=== PATIENT | female | born 1950 | race Caucasian/White ===

== ENCOUNTER → 2016-04-06 | Day surgery (SDC) | payer MEDICARE, BC ==
[~2016-04-06] MED LIST: ATOR40TA59 PO; DILT360C PO; HYDROMORPHONE 2 MG/ML VIAL. IV PRN; IV RINGERS,LACTATED 1000ML 1,000 ML IV SCH; LIDOCAINE 1% 1 ML SYRINGE. ID PRN; LIDOCAINE 2% PF Vial for OR 5 ML VIAL. ONE; METF10002 PO; MORPHINE SULFATE 2 MG/ML DISP.SYRIN. IV PRN; ONDANSETRON PF 4 MG/2 ML VIAL. IV PRN; PROCHLORPERAZINE 10 MG/2 ML VIAL. IV PRN; PROPOFOL 40 ML IV ONE; SERT100T PO
[2016-04-06 10:40] VITALS: BP 181/101
--- NOTE | 2016-04-09 14:48 | PATHOLOGY ---
PATHOLOGY REPORT * * * * * * * * FINAL DIAGNOSIS: Colon biopsy, splenic flexure polyp: - Consistent with an inflamed hyperplastic polyp, showing focal surface erosion with mild acute and moderate chronic inflammation. COMMENT: There is no high-grade dysplasia or evidence of malignancy. (JPM:; d/t: 04/09/16) REPORT ELECTRONICALLY SIGNED BY: Kristofer Jenkins M.D. DATE/TIME: 04/09/2016 14:47 * * * * * * * * GROSS PATHOLOGY: Received in formalin labeled "Lyn Strong, splenic flexure polyp," is a 0.6 x 0.5 x 0.3 cm polypoid piece of [place] soft tissue. The margin is inked and the tissue is sectioned perpendicular to the margin and submitted in its entirety in cassette A1. (CAA; 04/06/2016) INITIAL CPT CODE(S): A; 52195 Professional services [place] [facility] [place] [address] Technical services performed by [facility] at [address] [place] [address]. SPECIMEN(S) RECEIVED: A.Splenic flexure polyp CLINICAL HISTORY: History of polyps; polyp PATIENT: LYN STRONG /AGE: 708/13/1950 (Age: 65) PATIENT #: [id number] ALT CASE #: SPECIMEN COLLECTION DATE: 04/06/2016 SPECIMEN RECEIVED DATE: 04/06/2016 [facility] - [address] [place] [address] - PHONE: [phone] * * * END OF REPORT * * *
== END | disposition home or self-care (01) ==
LOC: ENDOS 08:50
PROVIDERS: ATTEND Internal Medicine Gastroenterology
DX: K64.0 First degree hemorrhoids (principal); D12.3 Benign neoplasm of transverse colon; I10 Essential (primary) hypertension; E03.9 Hypothyroidism, unspecified; E11.9 Type 2 diabetes mellitus without complications; M19.90 Unspecified osteoarthritis, unspecified site; Z80.0 Family history of malignant neoplasm of digestive organs; Z83.3 Family history of diabetes mellitus
CPT/HCPCS: 45385; J2704; 88305

== ENCOUNTER → 2017-10-23 | Outpatient (CLI) | payer MEDICARE, BC, OTHER ==
[2016-04-06 10:40] VITALS: BP 181/101
[~2017-10-23] MED LIST changes: -HYDROMORPHONE 2 MG/ML VIAL. IV PRN; -IV RINGERS,LACTATED 1000ML 1,000 ML IV SCH; -LIDOCAINE 1% 1 ML SYRINGE. ID PRN; -LIDOCAINE 2% PF Vial for OR 5 ML VIAL. ONE; -METF10002 PO; +METF10007 PO; -MORPHINE SULFATE 2 MG/ML DISP.SYRIN. IV PRN; -ONDANSETRON PF 4 MG/2 ML VIAL. IV PRN; -PROCHLORPERAZINE 10 MG/2 ML VIAL. IV PRN; -PROPOFOL 40 ML IV ONE
--- NOTE | 2017-10-23 13:39 | KCIC ---
MR of the right foot HISTORY: Right first toe pain and edema, at the head of the first metatarsal, for over one year. TECHNIQUE: Routine multiplanar sequences. FINDINGS: No bone lesion, acute fracture or bone destruction. Primary osteoarthritis, severe, at the first MTP joint. No acute sesamoiditis. Tiny soft tissue cyst medial to the base of the proximal first phalanx, only measures 5 mm. This may represent a small synovial cyst or ganglion. The visualized tendons in the foot are intact. No significant tendon sheath fluid. Lisfranc ligament complex is intact as is tarsometatarsal alignment. No abnormal soft tissue fluid collection. No significant intramuscular edema. IMPRESSION: 1. Primary osteoarthritis, severe at the first MTP joint. 2. No acute findings. Electronically signed by: Oliverio Miller MD (10/23/2017 1:36 PM) [facility]
== END | disposition home or self-care (01) ==
LOC: KCIC MRI 12:06
PROVIDERS: ATTEND Nurse Practitioner Family
DX: M19.071 Primary osteoarthritis, right ankle and foot (principal); I10 Essential (primary) hypertension; E11.9 Type 2 diabetes mellitus without complications; E03.9 Hypothyroidism, unspecified; Z80.0 Family history of malignant neoplasm of digestive organs; Z83.3 Family history of diabetes mellitus
CPT/HCPCS: 73718

== ENCOUNTER 2018-11-17 07:33 | Inpatient (IN) | payer MEDICARE, BC ==
[~2018-11-17] VITALS: Ht 165.1 cm; Wt 62.5 kg
[2018-11-17] VITALS (9 sets, daily range): BP systolic 139–171; BP diastolic 84–89
[~2018-11-17 07:33] MED LIST changes: +BACITRACIN 50,000 UNIT in IV NORMAL SALINE 1000ML BAG 1,000 ML IRR ONE; +BACITRACIN 50,000 UNIT in IV NORMAL SALINE 500ML BAG 500 ML IRR ONE; +CHOL100013 PO; +INSU100C4 SQ; +INSU100I13 SQ; +IRBE75TA2 PO; +LEVO125T PO; +METO-269 PO; +PRAV20TA2 PO; +TOLT4CAP PO
[2018-11-17] MEDS ORDERED: BUPIVACAINE-EPI 0.5%-1:200000 MPF 30 ML VIAL. INJ ONE (08:00)
[2018-11-17] MEDS: IV RINGERS,LACTATED 1000ML 1,000 ML IV SCH ×2 (08:28→12:09)
[2018-11-17] MEDS: INSULIN LISPRO 100 UNIT/ML 3ML VIAL for OP,RR ONLY. SQ PRN ×2 (08:39→12:40)
[2018-11-17] MEDS ORDERED: LIDOCAINE 2% PF 5 ML VIAL. ONE (09:00)
[2018-11-17] MEDS ORDERED: ROCURONIUM 50 MG/5 ML VIAL. ONE (09:00)
[2018-11-17] MEDS ORDERED: ONDANSETRON PF 4 MG/2 ML VIAL. ONE (09:00)
[2018-11-17] MEDS ORDERED: MIDAZOLAM HCL/PF 2 MG/2 ML VIAL. ONE (09:00)
[2018-11-17] MEDS ORDERED: PROPOFOL 20 ML IV ONE (09:00)
[2018-11-17] MEDS ORDERED: fentaNYL PF VIAL 100 MCG/2 ML VIAL ONE ×2 (09:00→12:18)
[2018-11-17] MEDS ORDERED: DEXAMETHASONE SOD PHOS 4 MG/ML VIAL ONE (09:00)
[2018-11-17] MEDS ORDERED: FAMOTIDINE 20 MG/2 ML VIAL ONE (09:00)
[2018-11-17] MEDS ORDERED: NEOSTIGMINE METHYLSULFATE 5 MG/5 ML SYRINGE. ONE (11:45)
[2018-11-17] MEDS ORDERED: GLYCOPYRROLATE 1 MG/5 ML VIAL. ONE (11:45)
[2018-11-17] MEDS ORDERED: SEVOFLURANE > 120 MINUTES. IH ONE (11:48)
[2018-11-17] MEDS ORDERED: ceFAZolin 2GM PREMIX 2 GM/50 ML BAG IV ONE (12:00)
--- NOTE | 2018-11-17 12:19 | PDOC4 ---
Operative Note Operative Note Operative Note: Preoperative Diagnosis: Right inguinal hernia, umbilical hernia Postoperative Diagnosis: Same Procedure: Right inguinal hernia repair, umbilical hernia repair Surgeon: [facility] Biller: Alice DE LA ROSA Anesthesia: Gen. EBL: 10 mL Specimen: None Drains: None Complications: None Indication: The patient is a 68-year-old female who was referred with both a right inguinal hernia and umbilical hernia. She is interested in operative repair. The details and risks of surgery were discussed. The risks include bleeding, infection, recurrence, pain, potential need for additional surgery or procedure. She understands and would like to proceed. Description: The patient was taken to the operating room and placed supine on the operating table. Gen. anesthesia was performed. The abdomen and right groin was shaved and prepped with ChloraPrep and draped in a standard surgical manner. An incision was made in the right groin with a scalpel. Cautery dissection was carried down to the external oblique. The external oblique was opened down to the external ring. There was a direct hernia defect readily identified with some protuberant fatty tissue. The round ligament was doubly ligated and divided. The contents of the hernia were reduced and the defect filled with a large Phasix mesh plug. The plug was sutured around its periphery with 2-0 Vicryl. The entire inguinal floor was then reinforced with a flat Prolene mesh. Inferiorly the mesh was sutured to the shelving edge of the inguinal ligament while superiorly it was sutured to the internal oblique muscle and aponeurosis. The external oblique aponeurosis was closed over the mesh with 2-0 Vicryl. Subcutaneous tissues approximated with 3-0 Vicryl. The skin was closed with 4-0 Monocryl. An infraumbilical incision was made with a scalpel. Cautery dissection was carried down to the fascia. The umbilical tissue was elevated off the fascia exposing a small defect. A preperitoneal plane was developed circumferentially in which a small Ventral ST mesh patch was placed. The mesh was sutured at the 12, 3, 6, 9:00 positions using 0 Prolene placed in a horizontal mattress fashion. The fascial edges were closed over the mesh with 0 Prolene. The umbilicus was sutured back to the fascia with 0 Vicryl. The subcutaneous tissue was closed with interrupted 3-0 Vicryl and skin approximated with 4-0 Monocryl. Both incision sites were infiltrated with half percent Marcaine with epinephrine. Steri-Strips and sterile dressings were applied. The patient tolerated the procedure well and was sent to the recovery room in stable condition. At the end of the case all counts were correct. DAVID TOBAR MD Nov 17, 2018 12:19
[2018-11-17] MEDS ORDERED: IV NORMAL SALINE 1000ML BAG 1,000 ML IV SCH (12:20)
[2018-11-17] MEDS ORDERED: IV RINGERS,LACTATED 1000ML 1,000 ML IV SCH (12:20)
[2018-11-17] MEDS ORDERED: LIDOCAINE 1% PF 2 ML VIAL. ID PRN (12:30)
[2018-11-17] MEDS ORDERED: 0.9 % SODIUM CHLORIDE 10 ML DISP.SYRIN. IV PRN (12:30)
[2018-11-17] MEDS ORDERED: MORPHINE SULFATE 2 MG/ML VIAL. IV PRN (12:30)
[2018-11-17] MEDS ORDERED: HYDROmorphone 2 MG/ML VIAL IV PRN (12:30)
[2018-11-17] MEDS ORDERED: NALOXONE 0.4 MG/ML VIAL. IV PRN (12:30)
[2018-11-17] MEDS ORDERED: ONDANSETRON PF 4 MG/2 ML VIAL. IV PRN ×2 (12:30)
[2018-11-17] MEDS ORDERED: PROCHLORPERAZINE 10 MG/2 ML VIAL. IV PRN (12:30)
[2018-11-17] MEDS ORDERED: KETOROLAC 30 MG/ML VIAL. ONE (12:41)
[2018-11-17] MEDS: fentaNYL PF VIAL 100 MCG/2 ML VIAL IVP PRN ×2 (12:43→13:04)
[2018-11-17] MEDS ORDERED: fentaNYL PF VIAL 100 MCG/2 ML VIAL IVP PRN (12:45)
[2018-11-17] MEDS ORDERED: KETOROLAC 15 MG/ML VIAL. IV ONE (13:00)
[2018-11-17] MEDS: IV 1/2 NORMAL SALINE 1,000 ML IV SCH (15:03)
[2018-11-17] MEDS: HYDROmorphone 2 MG/ML VIAL IV PRN ×3 (15:14→19:51)
[2018-11-17] MEDS: metFORMIN 500 MG TABLET PO SCH (17:51)
[2018-11-17] MEDS: INSULIN LISPRO 300 UNITS/3 ML VIAL. SQ SCH (17:58)
[2018-11-17] MEDS ORDERED: INSULIN GLARGINE SYRINGE. SQ SCH (21:00)
[2018-11-17] MEDS ORDERED: ATORVASTATIN CALCIUM 10 MG TABLET. PO SCH (21:00)
[2018-11-17] MEDS: OXYBUTYNIN CHLORIDE 5 MG TABLET PO SCH (21:16)
[2018-11-17] MEDS: HYDROcodone/APAP 5/325MG 1 TAB TABLET PO PRN (22:09)
[2018-11-18] MEDS: HYDROmorphone 2 MG/ML VIAL IV PRN (02:14)
[2018-11-18 03:00] VITALS: BP 160/82
[2018-11-18] MEDS: IV 1/2 NORMAL SALINE 1,000 ML IV SCH (03:21)
[2018-11-18] MEDS ORDERED: LEVOTHYROXINE 125 MCG TABLET PO SCH (06:00)
[2018-11-18 07:00] VITALS: BP 168/89
[2018-11-18] MEDS: INSULIN LISPRO 300 UNITS/3 ML VIAL. SQ SCH (08:00)
[2018-11-18 08:52] VITALS: BP 168/85
[2018-11-18] MEDS: metFORMIN 500 MG TABLET PO SCH (08:53)
[2018-11-18] MEDS: OXYBUTYNIN CHLORIDE 5 MG TABLET PO SCH (08:55)
[2018-11-18 08:57] VITALS: BP 168/85
[2018-11-18] MEDS ORDERED: CHOLECALCIFEROL (VITAMIN D3) 1,000 UNIT TABLET PO SCH (09:00)
[2018-11-18] MEDS ORDERED: LOSARTAN POTASSIUM 25 MG TABLET. PO SCH (09:00)
[2018-11-18] MEDS ORDERED: METOPROLOL SUCC 24HR ER 50 MG TAB.ER.24H. PO SCH (09:00)
[2018-11-18] MEDS ORDERED: SERTRALINE 50 MG TABLET. PO SCH (09:00)
--- NOTE | 2018-11-18 10:39 | PDOC ---
SURGICAL PROGRESS NOTE Subjective feeling pretty well no n/v ambulating urinating does have migraine--that will raise her BP Vital Signs Vital Signs Date Time Temp Pulse Resp B/P (MAP) Pulse Ox O2 Delivery O2 Flow Rate FiO2 11/18/18 08:57 100 168/85 11/18/18 07:00 98.8 20 94 Room Air 98.8 11/17/18 16:15 2.0 I&O Intake and Output 11/18/18 06:59 Intake Total 3100 ml Output Total 405 ml Balance 2695 ml Intake Oral 1100 ml IV Total 2000 ml Output Urine Total 400 ml Estimated Blood Loss 5 ml # Voids 3 General: Alert, Oriented X3, Cooperative, No acute distress Abdomen: Soft, Other (dressings to umbo and RIH repair dry and intact) Labs Laboratory Tests Test 11/17/18 08:19 11/17/18 12:36 11/17/18 16:32 11/17/18 20:45 Glucose (Fingerstick) 143 mg/dL (70-99) 162 mg/dL (70-99) 272 mg/dL (70-99) 291 mg/dL (70-99) Test 11/18/18 07:44 Glucose (Fingerstick) 130 mg/dL (70-99) Laboratory Tests Test 11/17/18 12:36 11/17/18 16:32 11/17/18 20:45 11/18/18 07:44 Glucose (Fingerstick) 162 mg/dL (70-99) 272 mg/dL (70-99) 291 mg/dL (70-99) 130 mg/dL (70-99) Assessment/Plan s/p RIH, umbo repair stable plan dc home JESSIE RANDHAWA APRN Nov 18, 2018 10:39
[2018-11-18] MEDS ORDERED: HYDR-2761 PO (10:41)
--- NOTE | 2018-11-18 10:43 | DISCH ---
DISCHARGE INSTRUCTIONS Condition on Discharge Condition on Discharge: Stable Activity After Discharge Activity Instructions for Disc: Activity as tolerated Other activity instructions: ok to shower and remove dressings 11/19 Lifting Instructions after Dis: No heavy lifting, No pulling or pushing Driving Instructions after Dis: Do not drive Diet after Discharge Diet after Discharge: Regular, Diabetic No Calorie Level Wound Incision Care Wound/Incision Care: Ice to area for comfort, May get incision wet, No wound care needed Contacting the after DC Call your doctor for: Concerns you may have Follow-Up Follow up with: Dr Mercer 2 weeks, call to schedule [phone] JESSIE RANDHAWA CAR WIPER Nov 18, 2018 10:43
--- NOTE | 2018-11-18 10:54 | NUR ---
Discharge Note: ORI MORENO Discharge instructions and discharge home medications reviewed with Patient and a copy given. All questions have been answered and understanding verbalized. The following instructions and handouts were given: d/c instructions, lortab script Discontinued lines and drains: Peripheral IV intact. Patient discharged to Home or Self Care with Family Member via Wheelchair
[2018-11-18] MEDS: HYDROcodone/APAP 5/325MG 1 TAB TABLET PO PRN (11:00)
== END 2018-11-18 11:34 | disposition home or self-care (01) | DRG 355 ==
LOC: SURG 07:33 → 4 NORTH 12:20 → OBSVTOIN 15:37
PROVIDERS: ADMIT Surgery; ATTEND Surgery
PROC: 0WUF0JZ Supplement Abdominal Wall with Synthetic Substitute, Open Approach (ICD-10-PCS; principal; 2018-11-17 09:30)
DX: K40.90 Unilateral inguinal hernia, without obstruction or gangrene, not specified as recurrent (principal); K42.9 Umbilical hernia without obstruction or gangrene; G43.909 Migraine, unspecified, not intractable, without status migrainosus; Z79.899 Other long term (current) drug therapy; Z88.8 Allergy status to other drugs, medicaments and biological substances
CPT/HCPCS: 82962; A7015; C1781; G0378; G0379; J0696; J1100; J1170; J1815; J1885; J2001; J2250; J2405; J2704; J2710; J3010; J3490; J7030; J7040; J7120; 97530

== ENCOUNTER → 2019-04-21 | Outpatient (CLI) | payer MEDICARE, BC ==
[~2019-04-21] MED LIST changes: -BACITRACIN 50,000 UNIT in IV NORMAL SALINE 1000ML BAG 1,000 ML IRR ONE; -BACITRACIN 50,000 UNIT in IV NORMAL SALINE 500ML BAG 500 ML IRR ONE; +HYDR-2761 PO; +IOHEXOL 240 MG/ML 50ML VIAL. ONE; +methylPREDNISolone ACETATE 40 MG/ML VIAL. ONE; +methylPREDNISolone ACETATE 80 MG/ML VIAL. ONE
--- NOTE | 2019-04-21 23:31 | PAIN ---
DATE OF SERVICE: 04/21/2019 INITIAL CONSULTATION FOR PAIN CLINIC CHIEF COMPLAINT: Low back and right lower extremity pain. HISTORY OF PRESENT ILLNESS: This is a 68-year-old female who presents with history of pain in the low back, right lower extremity for about a year, worse over the past few months. The patient has noticed increased pain with walking, standing, changing positions. It has been awaking her from sleep over the past few months as well about twice a night. The patient reports it does not affect her bowel or bladder control, but does affect her ability to walk fairly significantly over the past few months. The patient reports her disability rating from 0-10, 10 being the worst, is a 5 with family home responsibilities, 6 with recreation and social activity, occupational activity and self-care, 0 with life support activities. The patient reports it is worse with walking, standing, changing positions, also with sitting for prolonged periods on her right side. She has to lean on her left side to sit as well. The patient reports no loss of motor function, but the pain is described as intermittent in intensity across low back into the right lower extremity, anterior thigh and posterior gluteus and into the groin on the right side as well as the medial thigh and medial lower leg to the mid thigh anteriorly. The patient did have MRI scan of the lumbar spine showing multilevel relatively mild degenerative changes at L2-L3, L3-L4, L4-L5 with some posterior disk bulging at these levels with moderately narrowed lateral recess at L3-L4, lateral recess minimally effaces at L2-L3 and [id number] bilateral neural foramina at L4-L5. The patient reports no loss of motor function, but significant fatigability of the right lower extremity with ambulation. PAST MEDICAL HISTORY: Significant for diabetes insulin-dependent, hearing loss, hypothyroidism, hypertension, cigarette smoking, heart valvular irregularity, arthritis. PREVIOUS SURGERY: Includes hernia repair on the right side, cholecystectomy, tubal ligation and hysterectomy. CURRENT MEDICATIONS: Metformin, atorvastatin, Zoloft, Cardizem, vitamin D, NovoLog, Lantus, Detrol, Toprol, and Synthroid, also Avapro and pravastatin. FAMILY HISTORY: Significant for different types of cancer. SOCIAL HISTORY: The patient does not drink alcohol, does smoke a pack of cigarette per day and has for 9 years. Does not use any illegal, illicit or recreational drugs. She is currently retired, lives locally in [place], [place] with her and is currently retired. REVIEW OF SYSTEMS: The patient's review of systems is positive for those items mentioned in history of present illness. All systems reviewed and otherwise negative. It is complete, full and well documented on the patient's chart. PHYSICAL EXAMINATION: VITAL SIGNS: The patient's blood pressure is 150/112, pulse 98, respirations 18, temperature 97.9 degrees Fahrenheit, height is 5 feet 5 inches, weight is 140 pounds. GENERAL: The patient is awake, alert, oriented, appropriate, very pleasant demeanor. HEENT: Shows normocephalic, atraumatic. Extraocular movements are intact and symmetrical. Oral cavity shows mucous membranes moist and pink. Dentition is intact. NECK: Shows anterior throat supple without palpable lymphadenopathy noted. Swallow reflex symmetrical. CHEST: Shows normal on inspection. Breath sounds are clear bilaterally. HEART: Shows S1, S2 clear. No murmurs auscultated. ABDOMEN: Soft, nontender, nondistended. No palpable organomegaly is noted. No rebound or guarding demonstrated. BACK: Shows spine grossly in the midline. Normal appearing cervical lordotic curvature, thoracic kyphotic curvature and lumbar lordotic curvature. Lumbar paraspinous muscle shows symmetrical on inspection, on palpation shows some moderate tenderness diffusely, but only in the low lumbar distribution, slightly more on the right than the left, but without atrophy or hypertrophy without radiation. The patient has good rotational motion of lumbar spine, both laterally, right and left, greater than 10 degrees as well as extension greater than 10 degrees, forward flexion 45 degrees without significant increase in pain or discomfort or inability to rotate. The patient shows no tenderness over the spinous processes, sacrum or sacroiliac regions. EXTREMITIES: The patient's lower extremities show deep tendon reflexes at 2+ in the patellar, 1+ tendo-calcaneus tendons. Motor exam is strong with 5/5 dorsiflexion, extension, quadriceps and hamstring flexion symmetrical. Straight leg raise noted to be negative for reproduction of radicular symptoms both on the right and left lower extremities. Gaenslen's maneuvers are negative bilaterally. She has a mild Gil's maneuver on the right side, which is mildly tender with external rotation on the right only of the hip joint with flexion and external rotation, but without radiation into the groin. The patient is able to stand, stand on her toes without significant difficulty or loss of balance, walks with a normal-appearing gait, not using any assistive devices to ambulate such as canes or walkers. SKIN: Shows warm and dry, good turgor. No edema. No sores, rashes or bruising throughout. IMPRESSION: 1. This is a 68-year-old female with approximate 1-year history of increasing pain in the low back, right lower extremity with radicular pattern. 2. MRI scan of lumbar spine as noted. 3. Diabetes. 4. Hypertension. 5. Arthritis. PLAN: Options were discussed with the patient and the patient's spouse who accompanied her to visit today including conservative medical managements, physical therapies and interventional techniques. She would like to pursue interventional techniques. We discussed a lumbar epidural steroid injection using description as well as anatomical models to describe the procedure. Risks were then discussed including, but not limited to bleeding, infection, possibility of epidural hematoma, subsequent neurological compromise, dural puncture, headaches, spinal cord and/or nerve damage, side effects of steroid medication and poor results regarding pain control. The patient understands and wished to proceed. The patient will return to clinic in approximately 2 weeks for followup. She was counseled on return appointment, activity level and side effects to be aware of. DIAGNOSIS: Lumbar radiculopathy with lumbar degenerative disk disease. PROCEDURE: Lumbar epidural steroid injection, translaminar approach at L3-L4 level using C-arm fluoroscopic guidance under sterile prep and drape using local anesthetic. MEDICATION INJECTED: A total of 120 mg Depo-Medrol plus 10 mL of preservative-free normal saline and 2 mL of contrast. CONDITION AT DISCHARGE: Stable. The patient tolerated the procedure well, had no complications. LAURITA ROSA MD DR: MARTY/williams JOB#: [id number] / [id number]
== END ==
LOC: PNCL 10:48
PROVIDERS: ATTEND Anesthesiology
DX: M51.16 Intervertebral disc disorders with radiculopathy, lumbar region (principal); E11.9 Type 2 diabetes mellitus without complications; E03.9 Hypothyroidism, unspecified; I10 Essential (primary) hypertension; F17.210 Nicotine dependence, cigarettes, uncomplicated; Z87.39 Personal history of other diseases of the musculoskeletal system and connective tissue; Z90.49 Acquired absence of other specified parts of digestive tract; Z90.710 Acquired absence of both cervix and uterus; Z98.51 Tubal ligation status; Z79.84 Long term (current) use of oral hypoglycemic drugs
CPT/HCPCS: 62323; J1030; J1040; Q9966

== ENCOUNTER → 2019-10-14 | Outpatient (CLI) | payer MEDICARE, BC, OTHER ==
[~2019-10-14] MED LIST changes: +IOHEXOL 180 MG/ML 10 ML VIAL. ONE; -IOHEXOL 240 MG/ML 50ML VIAL. ONE
--- NOTE | 2019-10-14 13:23 | PDOC ---
Progress Note - Pain Clinic Date of Service: DOS: DATE: 10/14/19 TIME: 13:19 Diagnosis: Dx: Lumbar radiculopathy lumbar degenerative disc disease History or Present Illness: HPI: 69-year-old female returns follow-up status post lumbar epidurals injection x1 last seen April 21, 2019 patient reports she did very well with about 100% improvement for 4 months after the injection. Patient reports that the pain is returning after she was lifting a couple cases of heavy bottled water now reports the pain is a 10 on scale 10 is worst 8 on average and 8 its least is 8 today patient which is becoming more constant low back rating to right lower extremity posterior gluteus posterior lateral thigh lateral anterior thigh anterior medial thigh medial and posterior calf patient reports is burning and stinging aching dull sharp shooting as well. Patient reports no new motor or sensory deficits no new bowel or bladder incontinence initially she was doing much better with doing work activities household activities sleeping much better still wakes her from sleep occasionally over the last 2 weeks about every 7 hours. Physical Exam: VS: Blood pressure is 154/92 pulse 78 respirations 18 temperature 90.1 F height is 5 feet 5 inches weight is 133 pounds PE: PHYSICAL EXAMINATION: GENERAL: The patient is awake, alert, oriented, appropriate, very pleasant demeanor HEENT: Shows normocephalic, atraumatic. Extraocular movements are intact and symmetrical. Oral cavity: Mucous membranes moist and pink. NECK: Shows anterior throat supple without palpable lymphadenopathy noted. Swallow reflex symmetrical. CHEST: Shows normal on inspection. Breath sounds are clear bilaterally, no rales rhonchi or wheezes auscultated. HEART: Shows S1, S2 clear. No murmurs auscultated. ABDOMEN: Soft, nontender, nondistended. No palpable organomegaly is noted. No rebound or guarding demonstrated. BACK: Shows spine grossly in the midline. Normal-appearing cervical lordotic curvature. There is slightly increased thoracic kyphosis, some minor flattening of the lumbar lordotic curvature. Lumbar paraspinous muscles show symmetrical on inspection, on palpation shows some moderate tenderness diffusely throughout the upper, middle and lower distribution of the paraspinous muscles bilaterally, but without specific trigger points, without radiation of pain. The patient has good rotational motion of the lumbar spine, both laterally as well as extension and flexion without significant difficulty. No tenderness over the spinous processes, sacrum or sacroiliac regions. EXTREMITIES: Lower extremities show deep tendon reflexes 2+ in the patellar and tendo calcaneus tendons. Motor exam is 5 on a scale of 5 with right dorsiflexion, extension, quadriceps and hamstring flexion and 5/5 on the left. Peripheral pulses are 1+ posterior tibial. No peripheral edema is noted bilaterally. Lower extremities are warm and dry to touch, equal in color and appearance. SKIN: Shows warm and dry, good turgor. No edema. No sores, rashes or bruising throughout. Procedure: Procedure: Options discussed with the patient patient's old chart was reviewed as her current medication regimen updated current review of systems updated today as well. We will proceed with a lumbar epidural steroid injection as a second in the series with fluoroscopic guidance risks again discussed including but not l imited to bleeding infection possibility of epidural hematoma subsequent neurological compromise dural puncture headache spinal cord and or nerve damage side effects of steroid medication and poor results rating pain control. Understands wished to proceed patient return to clinic in approximate 2 weeks for follow-up was counseled as return appointment active level and side effects to be aware. Medication Injected: Med Injected: Procedure is lumbar epidural steroid injection under local anesthetic using sterile prep and drape at the L3-4 level using C-arm fluoroscopic guidance in both AP and lateral views medications injected is 120 mg Depo-Medrol + 10 mL preservative-free normal saline and 2 mL contrast- condition at discharge is stable patient tolerated procedure well had no complications. Condition at Discharge: Condition at Discharge: Condition at discharge stable patient tolerated procedure well had no complications. LAURITA ROSA MD Oct 14, 2019 13:23
== END | disposition home or self-care (01) ==
LOC: PNCL 12:38
PROVIDERS: ATTEND Anesthesiology
DX: M51.16 Intervertebral disc disorders with radiculopathy, lumbar region (principal); I10 Essential (primary) hypertension; E11.9 Type 2 diabetes mellitus without complications; E03.9 Hypothyroidism, unspecified; Z87.891 Personal history of nicotine dependence; Z72.89 Other problems related to lifestyle; Z98.890 Other specified postprocedural states; Z79.899 Other long term (current) drug therapy; Z79.4 Long term (current) use of insulin
CPT/HCPCS: 62323; J1030; J1040; Q9965

== ENCOUNTER → 2020-04-21 | Outpatient (CLI) | payer MEDICARE, BC ==
--- NOTE | 2020-04-21 11:42 | PDOC4 ---
PROCEDURE Procedure Patient was consented for lumbar epidural steroid injection. Risks were dis cussed including but not limited to: Bleeding, infection, possibility of epidural hematoma and subsequent neurological compromise, dural puncture, headaches, spinal cord and/or nerve damage, side effects of steroid medication, and poor results regarding pain control. Patient understands and wished to proceed. Procedure is lumbar epidural steroid injection under local anesthetic using sterile prep and drape at the L3-4 level using C-arm fluoroscopic guidance in both AP and lateral views medications injected is 120 mg Depo-Medrol + 10 mL preservative-free normal saline and 2 mL contrast- condition at discharge is stable patient tolerated procedure well had no complications. LAURITA ROSA MD Apr 21, 2020 11:42
--- NOTE | 2020-04-21 11:42 | PDOC ---
Progress Note - Pain Clinic Date of Service: DOS: DATE: 04/21/20 TIME: 11:39 Diagnosis: Dx: Lumbar radiculopathy with lumbar degenerative disc disease History or Present Illness: HPI: 69-year-old female returns follow-up status post lumbar epidural steroid injections most recently October 2019. Patient reports she did very well with about a 90% improvement for the first month or 2 then the pain began to return over the past month or 2 in the low back and right lower extremity. Patient reports in the posterior gluteus lateral thigh anterior thigh medial thigh medial lower leg and into the calf patient reports is a 10 on scale 10 is worse over the past week 8 on average for its least is a 4 today. Patient reports worse with walking standing changing positions describes pain as aching and dull with shooting pain in the right leg. Patient reports no new motor or sensory deficits no new bowel or bladder incontinence reports that she is sleeping well at night much better with sitting or laying down generally does not awaken her from sleep. Physical Exam: VS: Blood pressure is 134/73 pulse 40 respirations 18 temperature 98.0 F height is 5 feet 5 inches; weight is 140 pounds PE: PHYSICAL EXAMINATION: GENERAL: The patient is awake, alert, oriented, appropriate, very pleasant demeanor HEENT: Shows normocephalic, atraumatic. Extraocular movements are intact and symmetrical. Oral cavity: Mucous membranes moist and pink. NECK: Shows anterior throat supple without palpable lymphadenopathy noted. Swallow reflex symmetrical. CHEST: Shows normal on inspection. Breath sounds are clear bilaterally, no r ales bilaterally. HEART: Shows S1, S2 clear. No murmurs auscultated. ABDOMEN: Soft, nontender, nondistended, obese. No palpable organomegaly is noted. BACK: Shows spine grossly in the midline. Normal-appearing cervical lordotic curvature. Patient shows full rotation motion cervical spine both laterally as well as extension flexion without difficulty. There is slightly increased thoracic kyphosis, some minor flattening of the lumbar lordotic curvature. Lumbar paraspinous muscles show symmetrical on inspection, on palpation shows some moderate tenderness diffusely throughout the upper, middle and lower distribution of the paraspinous muscles without specific trigger points, without radiation of pain. The patient has good rotational motion of the lumbar spine, both laterally as well as extension and flexion without significant difficulty. No tenderness over the spinous processes, sacrum or sacroiliac regions. EXTREMITIES: Lower extremities show deep tendon reflexes 2+ in the patellar and tendo calcaneus tendons. Motor exam is 5 on a scale of 5 with right dorsiflexion, extension, quadriceps and hamstring flexion and 5/5 on the left. Peripheral pulses are 1+ posterior tibial. No peripheral edema is noted bilaterally. Lower extremities are warm and dry to touch, equal in color and appearance. SKIN: Shows warm and dry, good turgor. No edema. No sores, rashes or bruising throughout. Procedure: Procedure: Options were discussed with the patient. Patient chart reviews her current medication regimen updated current systems updated today as well. We will proceed with a lumbar epidural steroid injection today with fluoroscopic guidance. Risks were discussed including but not limited to: Bleeding, infection, possibility of epidural hematoma and subsequent neurological compromise, dural puncture, headaches, spinal cord and/or nerve damage, side effects of steroid medication, and poor results regarding pain control. Patient understands and wished to proceed. Patient will return to the clinic in approximate 2 weeks for follow-up, was counseled as to return appointment activity level and side effects to be aware of. Medication Injected: Med Injected: Procedure is lumbar epidural steroid injection under local anesthetic using sterile prep and drape at the L3-4 level using C-arm fluoroscopic guidance in both AP and lateral views medications injected is 120 mg Depo-Medrol + 10 mL preservative-free normal saline and 2 mL contrast- condition at discharge is stable patient tolerated procedure well had no complications. Condition at Discharge: Condition at Discharge: Condition at discharge stable, patient tolerated the procedure well and had no complications. LAURITA ROSA MD Apr 21, 2020 11:41
== END | disposition home or self-care (01) ==
LOC: PNCL 10:30
PROVIDERS: ATTEND Anesthesiology
DX: M51.16 Intervertebral disc disorders with radiculopathy, lumbar region (principal); K21.9 Gastro-esophageal reflux disease without esophagitis; I10 Essential (primary) hypertension; E03.9 Hypothyroidism, unspecified; E11.9 Type 2 diabetes mellitus without complications; M19.90 Unspecified osteoarthritis, unspecified site; F17.210 Nicotine dependence, cigarettes, uncomplicated; Z90.49 Acquired absence of other specified parts of digestive tract; Z98.51 Tubal ligation status; Z79.899 Other long term (current) drug therapy; Z98.890 Other specified postprocedural states; Z86.73 Personal history of transient ischemic attack (TIA), and cerebral infarction without residual deficits; Z85.3 Personal history of malignant neoplasm of breast; Z79.4 Long term (current) use of insulin; Z88.8 Allergy status to other drugs, medicaments and biological substances
CPT/HCPCS: 62323; J1030; J1040; Q9965; 77002

== ENCOUNTER 2020-12-30 10:17 | Day surgery (SDC) | payer MEDICARE, BC ==
[~2020-12-30] VITALS: Ht 165.1 cm; Wt 64.5 kg
[2020-12-30 08:15] VITALS: BP 146/74
[2020-12-30 10:10] VITALS: BP 109/55
[~2020-12-30 10:17] MED LIST changes: +BUPIVACAINE MPF 0.25% 30 ML VIAL. ONE; +HYDROmorphone 2 MG/ML VIAL IVP PRN; -IOHEXOL 180 MG/ML 10 ML VIAL. ONE; +IV RINGERS,LACTATED 1000ML 1,000 ML IV SCH; +MORPHINE SULFATE 2 MG/ML INJ. IVP PRN; +OMEP20TA63 PO; +PROCHLORPERAZINE 10 MG/2 ML VIAL. IVP PRN; +TRAM50TA PO; +fentaNYL PF VIAL 100 MCG/2 ML VIAL IVP PRN; -methylPREDNISolone ACETATE 40 MG/ML VIAL. ONE; -methylPREDNISolone ACETATE 80 MG/ML VIAL. ONE
--- NOTE | 2021-01-02 12:13 | OP ---
DATE OF SURGERY: 12/30/2020 PREOPERATIVE DIAGNOSIS: Trigger finger, left middle finger. POSTOPERATIVE DIAGNOSIS: Trigger finger, left middle finger. PROCEDURE: Trigger finger release, left middle finger. SURGEON: Erik Vásquez DO POCKET GRINDER OPERATOR: Joshua Kimble MD ANESTHESIA: General. COMPLICATIONS: None. ESTIMATED BLOOD LOSS: 5 mL. Standard Airline Mechanic Dictation DESCRIPTION OF PROCEDURE: The patient was taken to the operative suite, given a general anesthetic. Left upper extremity was then prepped and draped in a sterile fashion. Incision was made through skin and subcutaneous tissues directly over the area of the A1 tsering. This was taken down and the tsering was easily identified and released in its entirety and then the tendons were inspected and noted to be intact. There was a lot of fluid adjacent to the tendon itself, but no other significant abnormalities at all. Therefore, this was thoroughly irrigated. The wound was reapproximated. Sterile dressing was applied. Tourniquet was deflated with good return of pulses and capillary refill. The patient was then taken from the operative bed to the postoperative bed, taken to the PACU in stable condition. HO/DARRELL/DAVE DR: Odalys TID: [id number]
== END 2020-12-30 10:40 | disposition home or self-care (01) ==
LOC: SURG 10:17
PROVIDERS: ATTEND Orthopaedic Surgery
DX: M65.332 Trigger finger, left middle finger (principal); I10 Essential (primary) hypertension; K21.9 Gastro-esophageal reflux disease without esophagitis; E11.9 Type 2 diabetes mellitus without complications; E03.9 Hypothyroidism, unspecified; M19.90 Unspecified osteoarthritis, unspecified site; F17.210 Nicotine dependence, cigarettes, uncomplicated; Z86.73 Personal history of transient ischemic attack (TIA), and cerebral infarction without residual deficits; Z90.49 Acquired absence of other specified parts of digestive tract; Z90.710 Acquired absence of both cervix and uterus; Z98.890 Other specified postprocedural states; Z98.51 Tubal ligation status; Z85.3 Personal history of malignant neoplasm of breast; Z79.84 Long term (current) use of oral hypoglycemic drugs; Z79.899 Other long term (current) drug therapy; Z88.8 Allergy status to other drugs, medicaments and biological substances
CPT/HCPCS: 26055; A4930; A6402; J0690; J3490; A4657; A6452

== ENCOUNTER 2021-01-23 07:13 | Day surgery (SDC) | payer MEDICARE, BC ==
[~2021-01-23] VITALS: Ht 15.2 cm; Wt 64.5 kg
[~2021-01-23 07:13] MED LIST changes: +LIDOCAINE 2% PF 5 ML VIAL. ONE; +MIDAZOLAM HCL/PF 2 MG/2 ML VIAL. ONE; +ONDANSETRON PF 4 MG/2 ML VIAL. ONE; +PROPOFOL 10 MG/ML (20ML) VIAL. IV ONE; +fentaNYL PF VIAL 100 MCG/2 ML VIAL ONE
[2021-01-23] MEDS ORDERED: DEXAMETHASONE SOD PHOS 4 MG/ML VIAL ONE (07:35)
[2021-01-23] MEDS: INSULIN LISPRO 100 UNIT/ML 3ML VIAL for OP,RR ONLY. SQ PRN ×2 (07:51→08:48)
[2021-01-23] MEDS ORDERED: INSULIN LISPRO 100 UNIT/ML 3ML VIAL for OP,RR ONLY. SQ ONE ×2 (09:00)
[2021-01-23] MEDS ORDERED: TRAM50TA PO (09:16)
[2021-01-23] MEDS ORDERED: PROPOFOL 10 MG/ML (20ML) VIAL. IV ONE (09:19)
--- NOTE | 2021-01-23 09:37 | PDOC4 ---
OPERATIVE NOTE Date: Date: Jan 23, 2021 Pre-Op Diagnosis: Trigger finger right ring finger right middle finger Post-Op Diagnosis: Same Procedure Performed: Release A1 tsering right ring finger right middle finger Surgeon: Thalia Anesthesia Type: MAC Blood Loss: 5 cc Specimans Obtained: None Findings: See dictation Complications: None ARETHA CHILDERS Jr. DO Jan 23, 2021 09:37
--- NOTE | 2021-01-23 09:41 | OP ---
DATE OF SURGERY: 01/23/2021 PREOPERATIVE DIAGNOSIS: Trigger finger, right ring finger, right middle finger. POSTOPERATIVE DIAGNOSIS: Trigger finger, right ring finger, right middle finger. PROCEDURE: Trigger finger release, right ring finger, right middle finger. SURGEON: Erik Vásquez Jr, DO HEALTHCARE PROF: Joshua Kimble. ANESTHESIA: General. COMPLICATIONS: None. ESTIMATED BLOOD LOSS: 5 mL. DESCRIPTION OF PROCEDURE: The patient was taken to the operative suite, given a MAC. Right upper extremity was then prepped and draped in a sterile fashion. Incision was made directly over the area of the A1 tsering of the right ring finger and right middle finger. This was carefully taken down through the subcutaneous tissues directly to the A1 tsering that was easily identified as A1 tsering. First, the middle finger was released. The tendons were noted to be intact and fully released. The A1 tsering was noted to be released. Next, finger was then involved, with continued dissection down A1 tsering was identified and fully released. Underlying tendons were noted to be completely intact and stable. Wounds were then thoroughly irrigated. Sterile dressing was applied after the wounds were reapproximated in an interrupted fashion using 3-0 nylon and after local was placed and sterile dressing was applied. The patient was taken from the operative bed to the postoperative bed, taken to the PACU in stable condition. PADMINI DR: Odalys TID: [id number]
[2021-01-23] MEDS ORDERED: fentaNYL PF VIAL 100 MCG/2 ML VIAL ONE (10:02)
[2021-01-23 10:23] VITALS: BP 143/85
[2021-01-23] MEDS ORDERED: traMADol 50 MG TABLET PO ONE (10:30)
--- NOTE | 2021-01-23 11:17 | HP ---
DATE OF SERVICE: 01/23/2021 ADMIT DATE: 01/23/2021 HISTORY: She has trigger fingers of the right ring finger and right middle finger. She originally had the small finger involved. When I saw her in the office, however this morning, she does not have any triggering of the right small finger any longer. It is just the middle and ring fingers that are bothering her at this point today. This has been unresponsive to conservative therapies with treatment with anti-inflammatories, rest, etc. Nothing is helping at this point. Therefore, she wishes to proceed with trigger finger release. PAST MEDICAL HISTORY: Medical history is remarkable for breast cancer, hypercholesterol, diabetes, hypothyroidism and irregular heart rhythms. SURGICAL HISTORY: Cholecystectomy, hysterectomy, lumpectomy, left breast resection, tubal ligation, right inguinal hernia repair and umbilical hernia repair. FAMILY HISTORY: Remarkable for carcinoma as well as heart disease. Diabetes is also noted in the family. SOCIAL HISTORY: The patient is currently smoking. She does smoke 11-12 cigarettes per day. She does not drink any alcohol however. MEDICATIONS: Numerous and are listed on the questionnaire listed. Pravastatin, sertraline, Synthroid, NovoLog, Lantus, atorvastatin, Detrol, diltiazem, abstarin, metoprolol, metformin. MEDICATION ALLERGIES: DEMEROL. PHYSICAL EXAMINATION: She is 65 inches tall, 142 pounds. She has triggering at the A1 tsering of the ring finger and the middle finger today. Pain with palpation of the A1 tsering. There is no involvement of any other digits. There are some skin changes in the palm; however, that does not involve the area of the incision sites. Distal neurovascular status is fully intact. No other abnormalities were noted at this point. IMPRESSION: Trigger finger, right ring finger and right middle finger. PLAN: Again, she wishes to go ahead and have that released since she has failed all conservative therapies. We will proceed as soon as possible. [place] DR: Odalys TID: [id number]
== END 2021-01-23 10:59 | disposition home or self-care (01) ==
LOC: SURG 07:13
PROVIDERS: ATTEND Orthopaedic Surgery
DX: M65.341 Trigger finger, right ring finger (principal); M65.331 Trigger finger, right middle finger; E03.9 Hypothyroidism, unspecified; E78.00 Pure hypercholesterolemia, unspecified; E11.9 Type 2 diabetes mellitus without complications; I10 Essential (primary) hypertension; K21.9 Gastro-esophageal reflux disease without esophagitis; M19.90 Unspecified osteoarthritis, unspecified site; F17.210 Nicotine dependence, cigarettes, uncomplicated; Z85.3 Personal history of malignant neoplasm of breast; Z86.73 Personal history of transient ischemic attack (TIA), and cerebral infarction without residual deficits; Z79.84 Long term (current) use of oral hypoglycemic drugs; Z79.899 Other long term (current) drug therapy; Z98.890 Other specified postprocedural states; Z88.8 Allergy status to other drugs, medicaments and biological substances
CPT/HCPCS: 26055; 82962; J0690; J1100; J2250; J2405; J2704; J3010; J3490; A4657; A4930; A6402; A6452; J1815